=== PATIENT | male | born 1945 | race Caucasian/White ===

== ENCOUNTER 2020-09-20 14:47 | Inpatient (IN) | payer MEDICARE ==
[~2020-09-20] VITALS: Ht 182.9 cm; Wt 97.9 kg
--- NOTE | 2020-09-20 15:07 | PHYS DOC ---
Past History Past Surgical History: Tonsillectomy General Adult EDM: Chief Complaint: COUGH HPI: HPI: 74 yo M PMH "irregular heart beat," on xarelto and CHF, presents to the ed with c/o "there's fluid in my lungs," that started last night around 7 PM after patient was eating pizza. Reports has been able to lie flat Review of Systems: Review of Systems: Constitutional: Denies fever or chills Eyes: Denies change in visual acuity HENT: Denies nasal congestion or sore throat Respiratory: Denies cough or shortness of breath Cardiovascular: Denies chest pain or edema GI: Denies abdominal pain, nausea, vomiting, bloody stools or diarrhea : Denies dysuria Musculoskeletal: Denies back pain or joint pain Integument: Denies rash Neurologic: Denies headache, focal weakness or sensory changes Endocrine: Denies polyuria or polydipsia Lymphatic: Denies swollen glands Psychiatric: Denies depression or anxiety Allergies: Allergies: Allergies Coded Allergies Type Severity Reaction Last Updated Verified No Known Drug Allergies 09/20/20 No Physical Exam: PE: Constitutional: Well developed, well nourished, no acute distress, non-toxic appearance. HENT: Normocephalic, atraumatic, Eyes: EOMI, conjunctiva normal, no discharge. Neck: Normal range of motion, supple, Cardiovascular: S1/2 present, regular rhythm Lungs & Thorax: Speaking in full sentences, bilateral equal chest rise, no tachypnea or increased work of breathing Abdomen: soft, no tenderness, Skin: Warm, dry, no erythema, no rash. [] Back: No tenderness, no CVA tenderness. [] Extremities: No tenderness, no cyanosis, no lower extremity edema Neurologic: Alert and oriented X 3, normal motor function, normal sensory function, no focal deficits noted. [] Psychologic: Affect normal, judgement normal, mood normal. [] Current Patient Data: Vital Signs: Vital Signs Date Time Temp Pulse Resp B/P (MAP) Pulse Ox O2 Delivery O2 Flow Rate FiO2 09/20/20 14:57 98.2 128 34 137/82 96 Room Air EKG: EKG: A. fib 116 bpm, right axis deviation, QRS 106, QTc 49, right bundle branch block present, T wave inversion V2, V3, V4, V5 and V6, no obvious ST elevations Radiology/Procedures: Radiology/Procedures: IMAGING REPORT Addendum PATIENT: CLOVER SCHILLING ACCOUNT: [id number] : 09/19/1946 LOCATION: ER AGE: 74 SEX: M EXAM STATUS: REG ER ORD. PHYSICIAN: CHRISTOPHE ERICKSON DO REASON: spitting water...fb sensation PROCEDURE: NECK SOFT TISSUE ADDENDUM ADDENDUM #1 The roughly rectangular calcifications described overlying the thyroid cartilage most likely represent the arytenoid cartilages. Electronically signed by: Luis Rolon MD (09/20/2020 3:44 PM) [employer] ORIGINAL REPORT XR NECK SOFT TISSUE History: Spitting water. Foreign body sensation. Comparison: None. Technique: AP and lateral views of the neck soft tissues. Findings: The airway is patent. Normal prevertebral soft tissues. Normal epiglottis. There are 2 somewhat rectangular 6 mm calcific densities in the region of the thyroid cartilage of uncertain etiology. Nasopharynx and adenoidal soft tissues within normal limits. Carotid bulb calcifications. Moderate degenerative changes of the cervical spine at C4-C5. Impression: 1. Patent airway. Relatively rectangular 6 mm calcific densities in the region of the thyroid cartilage of uncertain ideology may be physiologic versus foreign body. CT of the neck is available for further characterization. Electronically signed by: Luis Rolon MD (09/20/2020 3:33 PM) [employer] DICTATED AND SIGNED BY: LUIS ROLON MD DATE: 09/20/20 1544 CC: PCP,NO; CHRISTOPHE ERICKSON DO ~ XR NECK SOFT TISSUE History: Spitting water. Foreign body sensation. Comparison: None. Technique: AP and lateral views of the neck soft tissues. Findings: The airway is patent. Normal prevertebral soft tissues. Normal epiglottis. There are 2 somewhat rectangular 6 mm calcific densities in the region of the thyroid cartilage of uncertain etiology. Nasopharynx and adenoidal soft tissues within normal limits. Carotid bulb calcifications. Moderate degenerative changes of the cervical spine at C4-C5. Impression: 1. Patent airway. Relatively rectangular 6 mm calcific densities in the region of the thyroid cartilage of uncertain ideology may be physiologic versus foreign body. CT of the neck is available for further characterization. Electronically signed by: Luis Rolon MD (09/20/2020 3:33 PM) [facility] DICTATED AND SIGNED BY: LUIS ROLON MD DATE: 09/20/20 1530 CC: ALEXIS INMAN; CHRISTOPHE ERICKSON DO ~MTH0 0 Heart Score: Risk Factors: Risk Factors: DM, Current or recent (<one month) smoker, HTN, HLP, family history of CAD, obesity. Risk Scores: Score 0 - 3: 2.5% MACE over next 6 weeks - Discharge Home Score 4 - 6: 20.3% MACE over next 6 weeks - Admit for Clinical Observation Score 7 - 10: 72.7% MACE over next 6 weeks - Early Invasive Strategies Course & Med Decision Making: Course & Med Decision Making Pertinent Labs and Imaging studies reviewed. (See chart for details) [] Dragon Disclaimer: Dragon Disclaimer: This electronic medical record was generated, in whole or in part, using a voice recognition dictation system. Departure Departure: Referrals: PCPALEXIS (PCP) CHRISTOPHE ERICKSON DO Sep 20, 2020 15:07
[2020-09-20] MEDS ORDERED: GLUCAGON,HUMAN RECOMBINANT 1 MG KIT. IV ONE (15:15)
[2020-09-20] MEDS ORDERED: ONDANSETRON PF 4 MG/2 ML VIAL. IVP ONE (15:15)
--- NOTE | 2020-09-20 15:33 | RAD ---
XR CHEST 1V History: Short of air. Comparison: None. Technique: Portable AP radiograph of the chest. Findings: The lungs are adequately inflated. There are subtle hazy airspace opacities bilaterally. No pleural e ffusion or pneumothorax. The cardiomediastinal silhouette and pulmonary vasculature are within normal limits. Osseous structures and soft tissues are unremarkable. Impression: 1. Subtle hazy bilateral airspace opacities may represent infectious process versus pulmonary edema. Electronically signed by: Luis Carroll MD (09/20/2020 3:30 PM) [facility]
--- NOTE | 2020-09-20 15:36 | RAD ---
XR NECK SOFT TISSUE History: Spitting water. Foreign body sensation. Comparison: None. Technique: AP and lateral views of the neck soft tissues. Findings: The airway is patent. Normal prevertebral soft tissues. Normal epiglottis. There are 2 somewhat recta ngular 6 mm calcific densities in the region of the thyroid cartilage of uncertain etiology. Nasophar ynx and adenoidal soft tissues within normal limits. Carotid bulb calcifications. Moderate degenerati ve changes of the cervical spine at C4-C5. Impression: 1. Patent airway. Relatively rectangular 6 mm calcific densities in the region of the thyroid cartil age of uncertain ideology may be physiologic versus foreign body. CT of the neck is available for fur ther characterization. Electronically signed by: Luis Carroll MD (09/20/2020 3:33 PM) [facility]
[2020-09-20 15:56] LABS: BASO # 0.1 x10^3/uL (0.0-0.2); BASO % 1 % (0-3); EOS % 0 % (0-3); HEMOGLOBIN 15.6 g/dL (13.0-17.5); LYMPH # 1.3 x10^3/uL (1.0-4.8); LYMPH % 7 % (24-48); MEAN CORPUSCULAR HEMOGLOBIN 31 pg (25-35); MEAN CORPUSCULAR HGB CONC 34 g/dL (31-37); MEAN CORPUSCULAR VOLUME 92 fL (79-100); MONO # 1.1 x10^3/uL (0.0-1.1); MONO % 6 % (0-9); NEUT # 16.3 x10^3uL (1.8-7.7); NEUT % 86 % (31-73); PLATELET COUNT 212 x10^3/uL (140-400); RED BLOOD COUNT 5.01 x10^6/uL (4.30-5.70); RED CELL DISTRIBUTION WIDTH 13.3 % (11.5-14.5); WHITE BLOOD COUNT 18.8 x10^3/uL (4.0-11.0)
[2020-09-20 15:57] LABS: GFR 72.8; POTASSIUM 3.9 mmol/L (3.5-5.1)
[2020-09-20 16:10] LABS: ALBUMIN 3.9 g/dL (3.4-5.0); DIRECT BILIRUBIN 0.3 mg/dL (0.0-0.2); MAGNESIUM 1.9 mg/dL (1.8-2.4); TOTAL BILIRUBIN 0.9 mg/dL (0.2-1.0); TOTAL PROTEIN 7.7 g/dL (6.4-8.2)
[2020-09-20 16:19] LABS: BARBITURATES NEG (NEG); BENZODIAZEPINES NEG (NEG); CANNABINOIDS NEG (NEG); COCAINE NEG (NEG); METHADONE NEG (NEG); OPIATES NEG (NEG); PHENCYCLIDINE NEG (NEG)
[2020-09-20 16:20] LABS: AMPHETAMINE/METHAMPHETAMINE NEG (NEG)
[2020-09-20 16:53] LABS: BILIRUBIN,URINE SMALL (NEG); CLARITY,URINE CLEAR; COLOR,URINE YELLOW; GLUCOSE,URINE NEG (NEG)
[2020-09-20 16:54] LABS: NITRITE,URINE NEG (NEG)
[2020-09-20 16:58] LABS: BACTERIA,URINE 0 /HPF (0-FEW); RBC,URINE OCC /HPF (0-2); SQUAMOUS EPITHELIAL CELL,UR OCC /LPF
[2020-09-20 17:09] LABS: % ATYL 2 % (0-0); % BANDS 19 % (0-9); % EOS 1 % (0-5); % LYMPHS 8 % (24-48); % MONOS 2 % (0-10); % SEGS 68 % (35-66)
[2020-09-20 17:10] LABS: PLT ESTIMATE ADEQUATE (ADEQUATE)
[2020-09-20] MEDS ORDERED: PIPERACILLIN/TAZOBACTAM 4.5 GM in IV NORMAL SALINE 50ML 50 ML IV ONE (17:45)
[2020-09-20] MEDS ORDERED: VANCOMYCIN PER PHARMACY MC PRN (17:45)
[2020-09-20] MEDS ORDERED: VANCOMYCIN 2 GM in IV NORMAL SALINE 500ML 500 ML IV ONE (18:00)
[2020-09-20] MEDS ORDERED: IOHEXOL 350 MG/ML 100 ML VIAL. IV ONE (18:00)
[2020-09-20] MEDS ORDERED: CONTRAST GIVEN. MC PRN (18:15)
[2020-09-20] MEDS ORDERED: PIPERACILLIN/TAZOBACTAM 4.5 GM VIAL IV ONE (18:24)
[2020-09-20] MEDS ORDERED: IV NORMAL SALINE 50ML 50 ML ONE (18:24)
--- NOTE | 2020-09-20 18:37 | RAD ---
CT arteriogram of the chest. HISTORY: Short of air, evaluate for pulmonary embolus CT arteriogram of the chest was done using 100 mL Omnipaque 350 contrast. Sagittal and coronal MIP im ages were reconstructed. There is a dilated fluid-filled esophagus. The stomach is nondistended. The pattern suggests distal esophageal obstruction. Spleen and adrenal glands are normal. Visualized panc reas is unremarkable. Adrenal glands are normal. This study is negative for a pulmonary embolus. Ther e is peribronchial thickening bilaterally. There is mucous plugging in the left lower lobe. There are basilar infiltrates. Pneumonia is possible, aspiration can have this pattern. There are mild emphyse matous changes in the upper lobes. IMPRESSION: 1. Dilated fluid-filled esophagus possible distal esophageal obstruction. 2. Peribronchial thickening bilaterally with mild mucus plugging left lower lobe.. 3. Bibasilar infiltrates from pneumonia or aspiration. PQRS Compliance Statement: One or more of the following individualized dose reduction techniques were utilized for this examinat ion: 1. Automated exposure control 2. Adjustment of the mA and/or kV according to patient size 3. Use of iterative reconstruction technique Electronically signed by: Silvio Canales MD (09/20/2020 6:35 PM) [facility]
[2020-09-20 20:45] VITALS: BP 135/80
--- NOTE | 2020-09-20 21:55 | NUR ---
Pharmacy Vancomycin Dosing Note S:Consulted to monitor and dose vancomycin started 09/20/20. O:CLOVER SCHILLING is a 74 year old M with CAP, . Height: 6 feet, 0 inches Weight: 97.9 kg [place] Body Weight: 77.60 Adjusted Body Weight: 85.72 Dosing Weight: Actual Other Antibiotics: ZOSYN 3.375GM IV Q6HRS LABS: Last BUN: 17 Last Creatinine: 1.0 Creatinine Clearance: 77.39 Last WBC: 18.8 Vancomycin Dosing: Loading Dose: 2000 mg x1 Dosing Weight: Actual Target Trough: 15-20 A: Based on: Actual weight, renal function, and indication P: 1. Begin Vancomycin 1500 mg IV q12h 2. Follow up Trough level on 09/22/20 at 0730 3. Pharmacy will continue to monitor, follow and adjust therapy as needed. PRECIOUS MAXWELL, 09/20/20 7626
[2020-09-20 21:59] VITALS: BP 153/91
--- NOTE | 2020-09-20 22:03 | NUR ---
NURSING ADMIT NOTE: Rec'd pt from ED at 1930 in stable condition via gurney; A&Ox4, able to ambulate from gurney to bed without difficulty; VSS; airway patent, Sats 96 on room air, able to speak without difficulty but states has not been able to swallow at all since choking on pizza 720 pm; wheezes throughout all lung fortune; expectorates clear frothy sputum/saliva; denies respiratory distress but states "I feel like I constantly have to spit"; admission assessment and history complete; telemetry on as per order, shows afib at 74 bpm; room orientation given, plan of care discussed, verbalized understanding; siderails up x2, call rosenthal in reach.
[2020-09-20 23:16] VITALS: BP 141/90
[2020-09-20] MEDS: PIPERACILLIN/TAZOBACTAM 3.375 GM in IV NORMAL SALINE 50ML 50 ML IV SCH (23:22)
[2020-09-20 23:44] VITALS: BP 143/91
[2020-09-21] VITALS (18 sets, daily range): BP systolic 132–163; BP diastolic 74–97
[2020-09-21] MEDS: PIPERACILLIN/TAZOBACTAM 3.375 GM in IV NORMAL SALINE 50ML 50 ML IV SCH ×4 (05:28→23:53)
--- NOTE | 2020-09-21 05:46 | NUR ---
Continues to be unable to swallow at all; spits out copious amounts of clear, thin, sometimes frothy sputum/saliva; airway remains intact with no c/o SOA, O2 on at 2L via nasal canula for support while sleeping, able to speak without difficulty; voids per urinal; daughter to bring home medications to hospital this a.m. for reconcilliation.
--- NOTE | 2020-09-21 07:07 | EKG ---
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
[2020-09-21] MEDS: VANCOMYCIN 1.5 GM in IV NORMAL SALINE 500ML 500 ML IV SCH ×2 (08:31→20:03)
--- NOTE | 2020-09-21 12:54 | NUR ---
Patient is alert and oriented x3. Is still unable to swallow his own saliva, chokes it back up and into basin. Pt reports his throat feels very uncomfortable. Dr Echeverria saw patient, attempting to try FLD. Pt unable to swallow milk or soup. Is not tolerating diet. Patient does not feel he will be able to take his meds orally. Notified Dr Echeverria. Orders received. Per Dr Echeverria if patient unable to swallow tomorrow then will attempt to transfer to [facility] if bed available.
--- NOTE | 2020-09-21 12:59 | HP ---
ADMIT DATE: 09/20/2020 ATTENDING PHYSICIAN: Dr. Echeverria. CHIEF COMPLAINT: Cough and shortness of breath. HISTORY OF PRESENT ILLNESS: The patient is a 74-year-old gentleman, retired, recently moved here from [facility]. Lives with his daughter. He has had a previous history of irregular heartbeat. He has been on Xarelto and diuretics. He has a probable Zenker's diverticulum. There were food products that caught in his distal esophagus. He has aspiration pneumonia. He has had his COVID injections. His CT of the chest demonstrated distal esophageal, partial blockage along with bibasilar infiltrate consistent with aspiration pneumonia. He has not had a GI workup. We will postpone that for him as outpatient. We do not have GI evaluation here. He is admitted for IV antibiotics, Zosyn was administered. He is doing better. Supplemental oxygen was added. PAST MEDICAL HISTORY: Significant for irregular heartbeat. He also has a remote history of congestive heart failure. PAST SURGICAL HISTORY: He has had a previous tonsillectomy. ALLERGIES: He has no known drug allergies. CURRENT MEDICATIONS: Include the following: He was taking Xarelto and we will try to contact his daughter for the rest of the list of medications. I do not have a list from the ED. FAMILY HISTORY: Noncontributory. REVIEW OF SYSTEMS: Significant for the chronic esophageal stricture, he said he has had this for many years now. All other systems reviewed and turned to be negative. He has had his COVID vaccine. PHYSICAL EXAMINATION: GENERAL: When I saw him, this is a pleasant elderly gentleman. INITIAL VITAL SIGNS: Showed a blood pressure 123/90, pulse was 100, and regular. He was afebrile, oxygen saturation 93% on 2 liters nasal cannula. HEENT: Head is without trauma. Pupils are reactive. Sclerae nonicteric. Oropharynx clear. NECK: Supple. LUNGS: Minimal rhonchi at bases. CARDIOVASCULAR: Showed distant heart tones. No gallops. ABDOMEN: Soft. No guarding or rebound tenderness. EXTREMITIES: Show no cyanosis or edema. NEUROLOGIC: Focally intact. Speech is fluent. PERTINENT LABORATORY STUDIES AND X-RAYS: Chest CT as noted. Initial hemoglobin was 15.6 g/dL with a white count of 18,000. Electrolytes within normal range. Nonfasting blood sugar 126. Three sets of cardiac enzymes negative for coronary ischemia. ASSESSMENT: 1. A 74-year-old gentleman with aspiration pneumonia. 2. Distal esophageal blockage most likely Zenker's diverticulum. 3. History of irregular heartbeat, I suspect atrial fibrillation. 4. Chronic anticoagulation with Xarelto. PLAN: 1. Admitted to the inpatient unit. 2. IV antibiotics. 3. Restart home meds. 4. Try a full liquid diet for now with monitoring for aspiration. [place]/ZACKARY DR: Adriana TID: [id number]
[2020-09-21] MEDS ORDERED: LABETALOL 20 MG/4 ML DISP.SYRIN. IVP PRN (13:00)
[2020-09-21] MEDS: ENOXAPARIN 30 MG/0.3 ML SYRINGE. SQ SCH (13:23)
[2020-09-21] MEDS: LABETALOL 20 MG/4 ML DISP.SYRIN. IVP SCH ×2 (13:24→20:53)
[2020-09-21] MEDS ORDERED: verapamil PO (14:13)
[2020-09-21] MEDS ORDERED: PRAV40TA2 PO (14:13)
[2020-09-21] MEDS ORDERED: AMIT50TA PO (14:13)
[2020-09-21] MEDS ORDERED: RIVA20TA2 PO (14:13)
[2020-09-21] MEDS ORDERED: METF500T16 PO (14:13)
[2020-09-21] MEDS ORDERED: BUPR150T8 PO (14:13)
[2020-09-21] MEDS ORDERED: HYDR12.58 PO (14:13)
[2020-09-21] MEDS ORDERED: LISI-517 PO (14:13)
[2020-09-21] MEDS ORDERED: SERT50TA PO (14:13)
[2020-09-22] VITALS (13 sets, daily range): BP systolic 116–155; BP diastolic 53–91
--- NOTE | 2020-09-22 05:30 | NUR ---
Pt A&Ox4, very pleasant and cooperative with assessment and cares. Pt at beginning of shift was unable to take PO intake and even unable to swallow his own saliva. Pt spits it back up into bright basin. Oral suction set up for pt to use, stated "this is so helpful and much easier." Pt reports his throat feels "full..like that steak is still stuck." Per Dr Echeverria if patient unable to swallow tomorrow then will attempt to transfer to [facility] if bed available for GI consult. Pt at around 2305, felt a pop and "full feeling released some." Pt now able to tolerate liquid intake easier. Pt slept off and on during night. Remained on 3L NC during shift. Pt due for Anabella elaine this AM.
[2020-09-22] MEDS: PIPERACILLIN/TAZOBACTAM 3.375 GM in IV NORMAL SALINE 50ML 50 ML IV SCH ×3 (05:50→18:25)
[2020-09-22 07:58] LABS: VANC TR 9.6 mcg/mL (10.0-20.0)
[2020-09-22] MEDS ORDERED: VANCOMYCIN 1 GM in IV NORMAL SALINE 250ML 250 ML IV SCH (08:30)
[2020-09-22] MEDS: LABETALOL 20 MG/4 ML DISP.SYRIN. IVP SCH (09:01)
[2020-09-22] MEDS: ENOXAPARIN 30 MG/0.3 ML SYRINGE. SQ SCH (14:17)
[2020-09-22] MEDS ORDERED: BENZOCAINE/MENTHOL LOZNGE 18'S BOX. PO PRN (14:30)
--- NOTE | 2020-09-22 16:50 | NUR ---
pt a very pleasant 74yo male, A&O x4. Pt has been able to tolerate full liquids today, with cont'd co of scratchy throat. Pt has been waiting for a open bed at [facility] for most of this shift. Received room assignment of 420, report was called to RADHA Montague. Awaiting EMS to arrive to transport pt to [facility].
--- NOTE | 2020-09-22 18:33 | NUR ---
[facility] here to transport pt to [facility]. Pt's daughter was here to pickling grader pt's car keys.
--- NOTE | 2020-09-22 19:12 | DS ---
DATE OF DISCHARGE: 09/22/2020 ATTENDING PHYSICIAN: Dr. cEheverria. FINAL DISCHARGE DIAGNOSES: 1. Aspiration pneumonia. 2. Distal esophagus obstruction. Etiology to be determined. 3. Paroxysmal atrial fibrillation. 4. Chronic anticoagulation. 5. Essential hypertension. 6. Underlying depression with anxiety. HISTORY AND PHYSICAL: The patient is a 74-year-old gentleman, recently moved here from [facility]. He presented with shortness of breath, congestion. He has had his COVID vaccine. He does have vomiting and cannot hold any food or liquids down. The CT of the chest showed bibasilar infiltrates, but he also had a distal esophageal obstruction. Etiology is unclear. Whether this is a benign condition such as Zenker's diverticulum or a malignancy remains to be seen. He has not had endoscopy before. PHYSICAL EXAMINATION: Please see the dictated note. PERTINENT LABORATORY AND X-RAY STUDIES: Admission hemoglobin was 15.6 g/dL, white count was 18,800. Electrolytes within normal range. Nonfasting blood sugar 126. Three sets of cardiac enzymes negative for coronary ischemia. Urinalysis was clear. CT as noted. COURSE IN THE HOSPITAL: The patient was admitted. He was started on intravenous Zosyn for his aspiration pneumonia. We kept him n.p.o. the first day. On the second hospital day, he tried to drink some clear liquids, he vomited this back up. We found out he was taking verapamil, Xarelto, metformin, lisinopril, and Zoloft. I gave him a dose of Lovenox. We held his p.o. meds. We gave him some intravenous labetalol to control his heart rate. By the third hospital day, he was able to find the channel where he was able to hold liquids down. He wished to have further evaluation and therefore, he needs an endoscopy. I contacted the hospitalist at [facility]. They have a bed available. They are agreeable to take to admit him to continue the antibiotics and have GI consultation for upper endoscopy. Therefore, our orders and arrangements for transportation were sent with the patient. He will continue IV Zosyn 3.375 IV q. 6 hours. Xarelto has been held. He should continue with the lisinopril, metformin and bupropion as scheduled. The patient was then discharged from our hospital to [facility] higher level of care where he can have specialty evaluation and endoscopy to determine the cause of his distal esophageal blockage. Total discharge time spent [address]: Adriana TID: [id number]
== END 2020-09-22 18:35 | disposition short-term general hospital (02) | DRG 178 ==
LOC: EDBD → ER 14:47 → ICU 17:52
PROVIDERS: ADMIT Hospitalist; ATTEND Hospitalist
DX: J69.0 Pneumonitis due to inhalation of food and vomit (principal); R65.10 Systemic inflammatory response syndrome (SIRS) of non-infectious origin without acute organ dysfunction; F41.8 Other specified anxiety disorders; I11.0 Hypertensive heart disease with heart failure; I48.0 Paroxysmal atrial fibrillation; I50.9 Heart failure, unspecified; K22.2 Esophageal obstruction; K22.5 Diverticulum of esophagus, acquired; Z79.01 Long term (current) use of anticoagulants
CPT/HCPCS: 36415; 70360; 71045; 71275; 80048; 80076; 80202; 80307; 81001; 82550; 82947; 83690; 83735; 83880; 84484; 85007; 85025; 93005; 96365; 96367; 96375; J1610; J1650; J2405; J2543; J3370; J3490; J7040; Q9967; 99285-25

== ENCOUNTER 2020-09-25 08:30 | Observation (INO) | payer MEDICARE ==
[~2020-09-25] VITALS: Ht 182.9 cm; Wt 98.1 kg
[~2020-09-25 08:30] MED LIST: AMIT50TA PO; BUPR150T8 PO; HYDR12.58 PO; LISI-517 PO; METF500T16 PO; PRAV40TA2 PO; RIVA20TA2 PO; SERT50TA PO; verapamil PO
--- NOTE | 2020-09-25 08:57 | PHYS DOC ---
Past History Past Surgical History: Tonsillectomy Additional Past Surgical Histo: KNEE PAIN Alcohol Use: None General Adult EDM: Chief Complaint: CHEST PAIN HPI: HPI: Patient is a 74 year old male with history of A. fib on Xarelto, recent hospitalization for aspiration and esophageal obstruction who was just discharged yesterday on Augmentin who presents with chest pain starting this morning. Has been present for 2 hours. It is sharp. Present substernally with inspiration only. Not exertional. No fever/chills. No shortness of breath. Was discharged yesterday with instructions to call family physician to schedule an outpatient endoscopy for concern of esophageal obstruction seen on CT. Review of Systems: Review of Systems: Constitutional: Denies fever or chills Eyes: Denies change in visual acuity HENT: Denies nasal congestion or sore throat Respiratory: Denies cough or shortness of breath Cardiovascular: + chest pain GI: Denies abdominal pain, nausea, vomiting, bloody stools or diarrhea : Denies dysuria Musculoskeletal: Denies back pain or joint pain Integument: Denies rash Neurologic: Denies headache, focal weakness or sensory changes Endocrine: Denies polyuria or polydipsia Lymphatic: Denies swollen glands Psychiatric: Denies depression or anxiety Current Medications: Current Meds: No pertinent family history Allergies: Allergies: Allergies Coded Allergies Type Severity Reaction Last Updated Verified No Known Drug Allergies 09/25/20 No Physical Exam: PE: Constitutional: Appears uncomfortable. non-toxic appearance. [] HENT: Normocephalic, atraumatic, bilateral external ears normal, oropharynx moist, no oral exudates, nose normal. [] Eyes: PERRLA, EOMI, conjunctiva normal, no discharge. [] Neck: Normal range of motion, no tenderness, supple, no stridor. [] Cardiovascular:Heart rate regular rhythm, no murmur [] Lungs & Thorax: Crackles bilaterally. [] Abdomen: Soft, nondistended. Nontender. No guarding.. [] Skin: Warm, dry, no erythema, no rash. [] Back: No tenderness, no CVA tenderness. [] Extremities: No tenderness, no cyanosis, no clubbing, ROM intact, no edema. [] Neurologic: Alert and oriented X 3, normal motor function, normal sensory function, no focal deficits noted. [] Psychologic: Affect normal, judgement normal, mood normal. [] Current Patient Data: Vital Signs: Vital Signs Date Time Temp Pulse Resp B/P (MAP) Pulse Ox O2 Delivery O2 Flow Rate FiO2 09/25/20 08:38 98.6 109 30 150/96 93 Room Air EKG: EKG: A. fib. Rate 116. Right bundle branch block [] Radiology/Procedures: Radiology/Procedures: [] Heart Score: C/O Chest Pain: N/A Risk Factors: Risk Factors: DM, Current or recent (<one month) smoker, HTN, HLP, family history of CAD, obesity. Risk Scores: Score 0 - 3: 2.5% MACE over next 6 weeks - Discharge Home Score 4 - 6: 20.3% MACE over next 6 weeks - Admit for Clinical Observation Score 7 - 10: 72.7% MACE over next 6 weeks - Early Invasive Strategies Course & Med Decision Making: Course & Med Decision Making Pertinent Labs and Imaging studies reviewed. (See chart for details) Patient is 74-year-old male with a history of recent admission for aspiration pneumonia and question of esophageal obstruction who presents with new onset chest pain this morning. Chest pain is quite uncomfortable and is slightly pleuritic. He was just discharged from the hospital yesterday on Augmentin for ongoing treatment of his pneumonia. He had instructions to follow-up with gastroenterology to try to arrange an outpatient upper endoscopy. On arrival is tachycardic and uncomfortable appearing. EKG with right bundle branch similar to previous. Troponin negative. Less likely ACS. Consider PE given his recent hospitalization, obtained CTA of the chest that did not show PE. It did show continued groundglass opacities concerning for pneumonia. White count is 12. Given his new and worsening chest pain I feel that he likely will require more urgent endoscopy as this may be esophageal in nature. No evidence of esophageal rupture on CT. I discussed transfer to [place] where he was just discharged from. He was accepted by Dr. Ramírez Avalos Disclaimer: Bailey Disclaimer: This electronic medical record was generated, in whole or in part, using a voice recognition dictation system. Departure Departure: Impression: Primary Impression: Chest pain Additional Impression: Aspiration pneumonia Disposition: 02 SHORT TERM HOSPITAL Condition: STABLE Referrals: MOSHE COVARRUBIAS (PCP) FAITH CHOE MD Sep 25, 2020 08:57
[2020-09-25] MEDS ORDERED: IOHEXOL 350 MG/ML 100 ML VIAL. IV ONE (09:00)
[2020-09-25] MEDS ORDERED: CONTRAST GIVEN. MC PRN (09:15)
[2020-09-25 09:24] LABS: BASO # 0.1 x10^3/uL (0.0-0.2); BASO % 1 % (0-3); EOS # 0.2 x10^3/uL (0.0-0.7); EOS % 1 % (0-3); HEMOGLOBIN 14.1 g/dL (13.0-17.5); LYMPH % 8 % (24-48); MEAN CORPUSCULAR HEMOGLOBIN 31 pg (25-35); MEAN CORPUSCULAR HGB CONC 34 g/dL (31-37); MEAN CORPUSCULAR VOLUME 91 fL (79-100); MONO # 0.9 x10^3/uL (0.0-1.1); MONO % 8 % (0-9); NEUT # 10.2 x10^3uL (1.8-7.7); NEUT % 82 % (31-73); PLATELET COUNT 212 x10^3/uL (140-400); RED BLOOD COUNT 4.51 x10^6/uL (4.30-5.70); RED CELL DISTRIBUTION WIDTH 13.6 % (11.5-14.5); WHITE BLOOD COUNT 12.4 x10^3/uL (4.0-11.0)
[2020-09-25 09:28] LABS: CALCIUM 8.7 mg/dL (8.5-10.1); CREATININE 0.8 mg/dL (0.7-1.3); GFR 94.2; POTASSIUM 3.4 mmol/L (3.5-5.1)
[2020-09-25 09:35] LABS: ALBUMIN 3.2 g/dL (3.4-5.0); ALBUMIN/GLOBULIN RATIO 1.1 (1.0-1.7); TOTAL BILIRUBIN 0.4 mg/dL (0.2-1.0); TOTAL PROTEIN 6.2 g/dL (6.4-8.2)
--- NOTE | 2020-09-25 10:24 | RAD ---
EXAM: CT chest with contrast - pulmonary embolus protocol CLINICAL HISTORY: Reason: chest pain, recent esophageal obstruction, aspiration. COMPARISON: 09/20/2020 TECHNIQUE: CT of the chest following the administration of intravenous contrast during the pulmonary arterial phase. Axial, coronal and sagittal reformatted images were generated including MIP images. ---PQRS compliance statement - One or more of the following individualized dose reduction techniques were utilized for this study: 1. Automated exposure control 2. Adjustment of the mA and/or kV according to patient size 3. Use of iterative reconstruction technique--- FINDINGS: CHEST: Diagnostic quality: Suboptimal. Pulmonary emboli: No pulmonary emboli to the level of the segmental branches. More peripheral vessel s are not well assessed. Right heart strain: None Pulmonary arteries: Normal in caliber. Heart is mildly enlarged. No pericardial effusion. Aortic calcifications are seen. Trace pleural effusions. No pneumothorax. No axillary lymphadenopathy. Subcarinal lymph node measures 2.2 x 1.8 cm. Small hilar lymph nodes sheri sure 1 cm short axis. Precarinal lymph node measures 11 mm in short axis. Emphysematous changes are seen. 6 mm middle lobe lung nodule is seen. Groundglass and solid parenchym al opacities greater in the lower lobes likely consolidative process such as pneumonia. Visualized Upper abdomen: Unremarkable Bones: No aggressive osseous lesion is seen. IMPRESSION: 1. No evidence for acute pulmonary embolus to the level of the segmental branches. More peripheral v essels are not well assessed. 2. Groundglass and solid parenchymal opacities greater in the lower lobes likely consolidative proce ss such as pneumonia. Imaging follow-up to resolution is recommended to exclude underlying mass. 3. 6 mm middle lobe lung nodule is seen. Per Fleischner Society guidelines for incidentally found so lid nodule measuring 6-8 mm, initial CT follow-up is recommended in 6-12 months. Additional follow-up can be considered in 18-24 month based on risk factors. 4. Mediastinal and hilar lymphadenopathy may be reactive. Electronically signed by: Esau Newsome MD (09/25/2020 10:22 AM) [id number]
--- NOTE | 2020-09-25 11:07 | EKG ---
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
[2020-09-25] MEDS ORDERED: PIPERACILLIN/TAZOBACTAM 3.375 GM in IV NORMAL SALINE 50ML 50 ML IV ONE (16:15)
[2020-09-25] MEDS ORDERED: PIPERACILLIN/TAZOBACTAM 3.375 GM VIAL IV ONE (16:35)
[2020-09-25] MEDS ORDERED: IV NORMAL SALINE 50ML 50 ML ONE (16:35)
--- NOTE | 2020-09-25 17:56 | NUR ---
PATIENT ARRIVED TO THE UNIT VIA GURNEY TRANSPORTED BY EMS PERSONNEL. PATIENT IS ALERT AND ORIENTED X 4 IN STABLE CONDITION. PATIENT WAS JUST DISCHARGED FROM [facility] AFTER BEING TRANSPORTED FROM [facility] TO [facility] LAST WEEK. PATIENT STATED HE WANTED TO FIND OUT WHAT WAS WRONG WITH HIM. PATIENT IS CURRENTLY IN BED WITH CALL LIGHT IN REACH, SIDE RAILS UP X'S 2. WCTM.
[2020-09-25 18:11] VITALS: BP 149/89
[2020-09-25] MEDS ORDERED: AMOX1TAB10 PO (19:59)
[2020-09-25] MEDS ORDERED: IPRA4AER INH (19:59)
[2020-09-25] MEDS ORDERED: VERA240C2 PO (19:59)
[2020-09-25] MEDS ORDERED: NON FORMULARY ITEM (Ipratropium/Albuterol Sulfate (Combivent Respimat Inhal) 1 PUFF) INH SCH (21:00)
[2020-09-25] MEDS: buPROPion SR 150 MG TABLET.SA PO SCH (21:29)
[2020-09-25] MEDS: VERAPAMIL SR 180 MG TABLET.ER. PO SCH (21:29)
[2020-09-25] MEDS ORDERED: AMITRIPTYLINE HCL 75 MG TABLET PO SCH (21:30)
[2020-09-25] MEDS ORDERED: RIVAROXABAN 10 MG TABLET. PO SCH (21:30)
[2020-09-25] MEDS ORDERED: ATORVASTATIN CALCIUM 10 MG TABLET. PO SCH (21:30)
[2020-09-25] MEDS: PIPERACILLIN/TAZOBACTAM 3.375 GM in IV NORMAL SALINE 50ML 50 ML IV SCH (21:32)
[2020-09-25 22:50] VITALS: BP 123/72
[2020-09-26] MEDS: PIPERACILLIN/TAZOBACTAM 3.375 GM in IV NORMAL SALINE 50ML 50 ML IV SCH ×2 (04:39→10:11)
[2020-09-26 05:17] VITALS: BP 107/64
[2020-09-26] MEDS ORDERED: IPRATRPIUM/ALBUTEROL 0.5/2.5MG 3 ML NEBU. ONE (05:23)
[2020-09-26] MEDS: IPRATRPIUM/ALBUTEROL 0.5/2.5MG 3 ML NEBU. NEB SCH ×2 (05:25→09:28)
[2020-09-26] MEDS: buPROPion SR 150 MG TABLET.SA PO SCH (07:59)
[2020-09-26] MEDS ORDERED: metFORMIN 500 MG TABLET PO SCH (08:00)
[2020-09-26] MEDS: VERAPAMIL SR 180 MG TABLET.ER. PO SCH (08:00)
[2020-09-26] MEDS ORDERED: LISINOPRIL 5 MG TABLET. PO SCH (09:00)
[2020-09-26] MEDS ORDERED: LACTOBACILLUS RHAMNOSUS GG 1 CAPSULE. PO SCH (09:00)
--- NOTE | 2020-09-26 11:40 | HP ---
ADMIT DATE: 09/25/2020 ATTENDING PHYSICIAN: Dr. Echeverria. CHIEF COMPLAINT: Chest pain. HISTORY OF PRESENT ILLNESS: The patient is a 75-year-old gentleman well known to me from admission just last week. This gentleman had an esophageal obstruction, most likely food bolus. He was transferred to [facility] just last week. He had aspiration pneumonia. He was improved with oral Augmentin. Unfortunately, he passed the food bolus. He was able to swallow. EGD was not done on that hospitalization and was supposed to be scheduled for an outpatient. He was discharged home. He was discharged the day before with instructions to call GI to schedule an outpatient endoscopy for esophageal obstruction seen on CT. That has not been obtained and he did not get much information. In any event, he had chest pain, noncardiac in nature. He was admitted for serial enzymes. Chest pain is most likely due to esophageal irritation. PAST MEDICAL HISTORY: Significant for paroxysmal atrial fibrillation, esophageal strictures, recent hospitalization, essential hypertension and type 2 diabetes. CURRENT MEDICATIONS: Reviewed. He was on Xarelto for atrial fibrillation, verapamil, metformin, Augmentin, lisinopril, lactobacillus, bupropion, Lipitor, amitriptyline and albuterol. ALLERGIES: He has no known drug allergies. SOCIAL HISTORY: He was a smoker in the past. No drug, alcohol use. Recently moved here from [facility] to be with his daughter. REVIEW OF SYSTEMS: Significant for the food bolus. He had abnormal CT with a distal esophageal stricture, which evidently past. No recent COVID exposure. All other systems reviewed and turned to be negative. PHYSICAL EXAMINATION: GENERAL: When I saw him, this is a pleasant elderly gentleman. INITIAL VITAL SIGNS: On admission showed a blood pressure of 107/64, pulse is 95 and irregular. He was afebrile, oxygen saturation 93% on room air. HEENT: Head is without trauma. Pupils are reactive. Sclerae nonicteric. Oropharynx is clear. NECK: Supple, no bruits identified. LUNGS: Clear. CARDIOVASCULAR: Regular heart tones. No gallops. ABDOMEN: Soft. EXTREMITIES: Without edema. NEUROLOGIC: Function focally intact. PERTINENT LABORATORY STUDIES: The first set of cardiac enzymes are negative for coronary ischemia. Hemoglobin 14.1 grams, white count 12,400. Electrolytes within normal range. BNP was 697. ASSESSMENT: 1. A 75-year-old gentleman with atypical chest pain, most likely esophageal spasm. 2. Recent esophageal obstruction due to a food bolus. 3. Paroxysmal atrial fibrillation. 4. Rule out coronary ischemia. PLAN: 1. Admit to the inpatient unit. 2. IV antibiotics while he is here in the hospital. 3. Serial cardiac enzymes. 4. Proton pump inhibitor. 5. Continue home meds. YVONNE DR: Adriana TID: [id number]
[2020-09-26 11:59] VITALS: BP_SYST 102; BP_SYST 130; BP_DIAS 51; BP_DIAS 75
--- NOTE | 2020-09-26 12:19 | NUR ---
PATIENT IS DISCHARGED HOME , FOLLOW UP APPOINTMENT DISCUSSED, PATIENT VERBALIZED UNDERSTANDING. PATIENT LEFT UNIT VIA AMBUL ACCOMP BY STAFF. PATIENT IS TAKEN HOME BY DAUGHTER VIA PERSONAL VEHICLE.
--- NOTE | 2020-09-26 12:30 | DS ---
DATE OF DISCHARGE: 09/26/2020 ATTENDING PHYSICIAN: Dr. Echeverria. FINAL DISCHARGE DIAGNOSES: 1. Epigastric pain, coronary ischemia ruled out. 2. Recent esophageal food bolus stricture. 3. Paroxysmal atrial fibrillation. 4. Aspiration pneumonia related to esophageal stricture. 5. Chronic anticoagulation. 6. Paroxysmal atrial fibrillation. 7. Type 2 diabetes. HISTORY AND PHYSICAL: The patient is a 75-year-old gentleman just discharged last week to go to [employer]. He needed an EGD. He passed his food bolus and obstruction. He was sent home. He was instructed to schedule an outpatient EGD. The patient has hearing issues and did not understand, this was never accomplished. We in fact have called and scheduled him for an EGD. PHYSICAL EXAMINATION: Please see the dictated note. PERTINENT LABORATORY AND X-RAY STUDIES: Three sets of cardiac enzymes are negative for coronary ischemia. Home medications were continued. Vital signs are stable. COURSE IN THE HOSPITAL: The patient was admitted overnight for observation. Three sets of cardiac enzymes were negative for coronary ischemia. Chest pain resolved. I recommended continuation of his Augmentin as well as a proton pump inhibitor. Therefore, the next day we made arrangements for him to have an appointment to see the inverter and clipper and schedule an outpatient EGD. In addition, he will finish his Augmentin as prescribed. I also wrote a script for Nexium 40 mg p.o. daily. Other home meds include amitriptyline, bupropion, lisinopril, metformin, verapamil, and Xarelto; doses are unchanged. The patient was then discharged from our hospital in stable condition with explicit drug and followup care. LUIS ANTONIO DR: Adriana TID: [id number]
== END 2020-09-26 12:20 | disposition home or self-care (01) ==
LOC: EDBD 08:30 → ER 08:30 → 1 SOUTH 16:44
PROVIDERS: ADMIT Hospitalist; ATTEND Hospitalist
DX: K22.2 Esophageal obstruction (principal); J69.0 Pneumonitis due to inhalation of food and vomit; R07.89 Other chest pain; I48.0 Paroxysmal atrial fibrillation; Z20.822 Contact with and (suspected) exposure to COVID-19; E11.9 Type 2 diabetes mellitus without complications; I10 Essential (primary) hypertension; Z79.01 Long term (current) use of anticoagulants; Z87.891 Personal history of nicotine dependence
CPT/HCPCS: 36415; 71275; 80053; 83880; 84484; 85025; 87426; 93005; 94640; 96365; 96366; 99285; G0378; J2543; Q9967; U0003; G0379